=== PATIENT | female | born 1985 | race Caucasian/White ===

== ENCOUNTER 2021-05-09 23:30 | Emergency (ER) | payer BC ==
[~2021-05-09] VITALS: Ht 167.6 cm; Wt 54.4 kg
--- NOTE | 2021-05-10 00:01 | NUR ---
BIBS C/O MECHANICAL FALL +KO +LAC UNDER CHIN +DIZZYNESS 6/10 PAIN. PT PLACED ON MONITOR VS STABLE. MD WAS AT BEDSIDE FOR EVAL.
[2021-05-10] MEDS ORDERED: TDAP [DIPH/PERTUSSIS/TET] 0.5 ML VIAL IM ONE (00:04)
[2021-05-10] MEDS: TDAP [DIPH/PERTUSSIS/TET] 0.5 ML VIAL IM ONE (00:09)
--- NOTE | 2021-05-10 00:12 | NUR ---
TAKEN TO CT
[2021-05-10] MEDS ORDERED: LIDOCAINE 1%-EPI 1:100,000 20 ML VIAL ONE (00:25)
[2021-05-10] MEDS ORDERED: IBUPROFEN 400 MG TABLET ONE (01:15)
[2021-05-10 01:24] VITALS: BP 101/66
[2021-05-10] MEDS: IBUPROFEN 400 MG TABLET PO ONE (01:25)
--- NOTE | 2021-05-10 01:50 | NUR ---
Patient discharged to home in stable condition. Written and verbal after care instructions given. Patient verbalizes understanding of instruction.
[2021-05-11] MEDS ORDERED: HYDR-4275 PO (00:06)
[2021-05-11] MEDS ORDERED: ONDA4TAB5 PO (00:07)
== END 2021-05-10 01:50 | disposition home or self-care (01) ==
LOC: ER 23:38
DX: S01.81XA Laceration without foreign body of other part of head, initial encounter (principal); Z60.2 Problems related to living alone; W18.39XA Other fall on same level, initial encounter; Y93.89 Activity, other specified; Y92.89 Other specified places as the place of occurrence of the external cause; Y99.8 Other external cause status
CPT/HCPCS: 12013; 70450; 70486; 72125; 90471; 90715; 99285; A6403; J3490

== ENCOUNTER 2021-05-10 23:36 | Emergency (ER) | payer BC ==
[~2021-05-10] VITALS: Ht 167.6 cm; Wt 54.4 kg
[2021-05-10 23:51] VITALS: BP 94/57
[2021-05-11] MEDS ORDERED: HYDR-4275 PO (00:06)
[2021-05-11] MEDS ORDERED: ONDA4TAB5 PO (00:07)
[2021-05-11] MEDS ORDERED: HYDROCODONE/APAP 5/325MG TABLET ONE (00:17)
[2021-05-11] MEDS ORDERED: ONDANSETRON 4 MG TAB.RAPDIS ONE (00:17)
[2021-05-11] MEDS ORDERED: HYDROCODONE/APAP 5/325MG TABLET PO ONE (00:30)
[2021-05-11] MEDS ORDERED: ONDANSETRON 4 MG TAB.RAPDIS SL ONE (00:30)
== END 2021-05-11 00:35 | disposition home or self-care (01) ==
LOC: ER 23:39
DX: S01.81XA Laceration without foreign body of other part of head, initial encounter (principal); R11.0 Nausea; Z60.2 Problems related to living alone; Z79.899 Other long term (current) drug therapy; W19.XXXA Unspecified fall, initial encounter; Y93.89 Activity, other specified; Y92.89 Other specified places as the place of occurrence of the external cause; Y99.8 Other external cause status
CPT/HCPCS: 99283; Q0162

== ENCOUNTER 2021-06-10 04:02 | Emergency (ER) | payer BC, OTHER ==
[~2021-06-10] VITALS: Ht 170.2 cm; Wt 54.0 kg
[~2021-06-10 04:02] MED LIST: HYDR-4275 PO; ONDA4TAB5 PO
[2021-06-10] MEDS: IV NS 0.9% 1,000 ML IV ONE (05:00)
[2021-06-10 05:21] LABS: CALCIUM, SERUM 8.9 mg/dL (8.5-10.1); CREATININE 0.9 mg/dL (0.6-1.3); POTASSIUM 3.7 mmol/L (3.5-5.1)
[2021-06-10 05:24] LABS: BASOPHILS % (AUTO) 0.8 % (0.0-2.0); EOSINOPHILS % (AUTO) 4.1 % (0.0-6.0); HEMATOCRIT 36 % (33-45); HEMOGLOBIN 12.4 g/dL (11.5-14.8); LYMPHOCYTES % (AUTO) 38.2 % (20.0-44.0); MEAN CORPUSCULAR HGB CONC 35 g/dl (31.0-36.0); MEAN CORPUSCULAR VOLUME 94 fL (82-100); MONOCYTES # (AUTO) 0.5 K/uL (0.1-1.30); MONOCYTES % (AUTO) 9.8 % (2.0-12.0); NEUTROPHILS # (AUTO) 2.4 K/uL (1.8-8.9); NEUTROPHILS % (AUTO) 47.1 % (43.0-81.0); PLATELET COUNT (AUTO) 183 K/uL (150-450); WHITE BLOOD COUNT (AUTO) 5.2 K/uL (4.3-11.0)
[2021-06-10 05:27] LABS: ALBUMIN 3.9 g/dL (3.4-5.0); BILIRUBIN,TOTAL 0.3 mg/dL (0.2-1.0); TOTAL PROTEIN, SERUM 6.9 g/dL (6.4-8.2)
[2021-06-10 06:32] LABS: BILIRUBIN,URINE NEGATIVE (NEGATIVE); LEUKOCYTE ESTERASE ,URINE NEGATIVE (NEGATIVE); NITRITE, URINE NEGATIVE (NEGATIVE); PH,URINE 7.5 (5.0-8.0); PROTEIN,URINE NEGATIVE (NEGATIVE); UGLUCOSE NEGATIVE (NEGATIVE); UROBILINOGEN,URINE 0.2 EU/dL (0.2)
[2021-06-10 06:35] LABS: COLOR,URINE STRAW (YELLOW)
[2021-06-10 07:03] VITALS: BP 110/71
== END 2021-06-10 06:46 | disposition home or self-care (01) ==
LOC: ER 04:04
DX: I95.1 Orthostatic hypotension (principal); F41.9 Anxiety disorder, unspecified; F17.200 Nicotine dependence, unspecified, uncomplicated
CPT/HCPCS: 36415; 80053; 81003; 84703; 85025; 93005; 96360; 99284; J7030